=== PATIENT | male | born 1960 | race Caucasian/White ===

== ENCOUNTER 2021-12-29 08:39 | Inpatient (IN) ==
[2021-12-29] MEDS ORDERED: 0.9 % Sodium Chloride 1,000 ML IVC SCH (12:00)
[2021-12-29] MEDS ORDERED: Perflutren Lipid Microsphere 1.3 ML in 0.9 % Sodium Chloride 8.7 ML IVP PRN ×2 (12:15→12:30)
[2021-12-29] MEDS ORDERED: D5% in Water 1,000 ML IVC PRN (12:30)
[2021-12-29] MEDS ORDERED: *HR* OxyCODONE Immed Rel 5 MG TABLET PO PRN (12:30)
[2021-12-29] MEDS ORDERED: Dextrose Gel 15 GM/37.5 ML TUBE PO PRN ×2 (12:30)
[2021-12-29] MEDS ORDERED: Acetaminophen 325 MG TABLET PO PRN (12:30)
[2021-12-29] MEDS ORDERED: Ondansetron 4 MG/2 ML VIAL IVP PRN (12:30)
[2021-12-29] MEDS ORDERED: *HR* Dextrose 50 % in Water (Syg) 50 ML SYRINGE IVP PRN (12:30)
[2021-12-29] MEDS ORDERED: Naloxone 0.4 MG/ML INJ IVP PRN (12:30)
[2021-12-29] MEDS ORDERED: 0.9 % Sodium Chloride 2,000 ML ONE (12:42)
[2021-12-29] MEDS ORDERED: Heparin 1,000 UNITS/500 mL 500 ML ONE (12:42)
[2021-12-29] MEDS ORDERED: Nitroglycerin 1,000 MCG/5 ML VIAL IV ONE (12:42)
[2021-12-29] MEDS ORDERED: *HR* Heparin 10,000 UNIT/10 ML VIAL ONE (12:42)
[2021-12-29] MEDS ORDERED: Iopamidol - 370 200 ML INFUS..BTL ONE ×2 (12:42→13:55)
[2021-12-29] MEDS ORDERED: *HR* FentaNYL (PF) 100 MCG/2 ML VIAL ONE (12:56)
[2021-12-29] MEDS ORDERED: *HR* Midazolam HCl 2 MG/2 ML VIAL ONE (12:56)
[2021-12-29] MEDS ORDERED: Tirofiban 12.5 MG/250ML 12.5 MG/250 ML BAG ONE (13:37)
[2021-12-29] MEDS ORDERED: SULFUR HEXAFLUORIDE MICROSPHR 25 MG VIAL IVP ONE (14:05)
[2021-12-29] MEDS ORDERED: *HR* Ticagrelor 90 MG TABLET ONE (14:10)
[2021-12-29] MEDS ORDERED: Tirofiban 12.5 MG/250ML 12.5 MG/250 ML BAG IVC SCH (14:15)
[2021-12-29] MEDS: Insulin LISPRO 300 UNITS/3 ML VIAL SUBQ SCH (18:50)
[2021-12-29] MEDS: carvediloL 6.25 MG TABLET PO SCH (18:50)
[2021-12-29] MEDS: Nicotine 21 MG PATCH.TD24 TD SCH (18:50)
[2021-12-29] MEDS: *HR* Ticagrelor 90 MG TABLET PO SCH (20:09)
[2021-12-30] MEDS: Insulin LISPRO 300 UNITS/3 ML VIAL SUBQ SCH ×4 (01:11→17:40)
[2021-12-30 01:36] LABS: Basophils % 0.2 %; Eosinophils % 0.1 %; Hematocrit 45.7 % (37.5-50.1); Hemoglobin 14.4 g/dL (12.9-16.9); Immature Granulocytes % 0.5 % (0-4); Lymphocytes # 1.3 K/mcL (0.6-4.6); Lymphocytes % 9.9 %; Mean Corpuscular HGB Conc 31.5 g/dL (31.6-35.5); Mean Corpuscular Hemoglobin 29.6 pg (28.0-33.3); Mean Platelet Volume 10.1 fL (9.4-12.4); Monocytes # 1.2 K/mcL (0.0-1.3); Monocytes % 9.8 %; Platelet Count 199 K/mcL (140-400); Red Blood Count 4.86 M/mcL (4.19-5.50); Red Cell Distribution Width 14.4 % (11.5-14.5); Segmented Neutrophils % 79.5 %; White Blood Count 12.6 K/mcL (4.3-11.1)
[2021-12-30 01:55] LABS: BUN/Creatinine Ratio 12 (6-26); Blood Urea Nitrogen 16 mg/dL (8-23); Calcium 9.4 mg/dL (8.6-10.3); Carbon Dioxide 29 mEq/L (23-29); Chloride 105 mEq/L (98-107); Chol/HDL Ratio 4.8 (0-4.9); Cholesterol 125 mg/dL (< 200); Glucose 182 mg/dL (70-105); HDL Cholesterol 26 mg/dL (40-59); LDL Cholesterol,Calculated 59 mg/dL (< 100); Osmolality,Calculated 294 (280-300); Potassium 4.4 mEq/L (3.5-5.1); Sodium 139 mEq/L (136-145); Triglycerides 198 mg/dL (< 150); eGFR For African Americans > 60 (> 60); eGFR For Non-African Americans 54 (> 60)
[2021-12-30] MEDS ORDERED: Aspirin Enteric Coated 81 MG Tablet PO SCH (09:00)
[2021-12-30] MEDS: Aspirin 81 MG TAB.CHEW PO SCH (09:04)
[2021-12-30] MEDS: *HR* Ticagrelor 90 MG TABLET PO SCH ×2 (09:04→20:50)
[2021-12-30] MEDS: carvediloL 6.25 MG TABLET PO SCH (09:05)
[2021-12-30] MEDS: Nicotine 21 MG PATCH.TD24 TD SCH (09:05)
[2021-12-30] MEDS ORDERED: tiZANidine 4 MG TABLET PO PRN (10:28)
[2021-12-30] MEDS: Metoprolol XL (24 HR) Succ 25 MG TAB.ER.24H PO SCH (13:26)
[2021-12-30] MEDS: Gabapentin 400 MG CAPSULE PO SCH ×3 (13:27→20:52)
[2021-12-30] MEDS: Furosemide 20 MG/2 ML VIAL IVP SCH (13:27)
[2021-12-30] MEDS: Apixaban 5 MG TABLET PO SCH ×2 (15:01→20:49)
[2021-12-30] MEDS ORDERED: carvediloL 6.25 MG TABLET PO SCH (17:00)
[2021-12-31] MEDS: Insulin LISPRO 300 UNITS/3 ML VIAL SUBQ SCH ×3 (01:23→12:13)
[2021-12-31 01:38] LABS: Basophils # 0.1 K/mcL (0.0-0.2); Basophils % 0.5 %; Eosinophils # 0.1 K/mcL (0.0-0.6); Eosinophils % 0.8 %; Hematocrit 46.9 % (37.5-50.1); Hemoglobin 15.1 g/dL (12.9-16.9); Immature Granulocytes % 0.5 % (0-4); Lymphocytes # 2.3 K/mcL (0.6-4.6); Lymphocytes % 23.7 %; Mean Corpuscular HGB Conc 32.2 g/dL (31.6-35.5); Mean Corpuscular Hemoglobin 30.2 pg (28.0-33.3); Mean Corpuscular Volume 93.8 fL (83.0-100.0); Mean Platelet Volume 10.2 fL (9.4-12.4); Monocytes # 1.1 K/mcL (0.0-1.3); Monocytes % 11.3 %; Neutrophils # 6.1 K/mcL (1.6-8.9); Platelet Count 184 K/mcL (140-400); Red Cell Distribution Width 14.3 % (11.5-14.5); Segmented Neutrophils % 63.2 %; White Blood Count 9.7 K/mcL (4.3-11.1)
[2021-12-31 02:34] LABS: Calcium 10.1 mg/dL (8.6-10.3); Magnesium 1.8 mg/dL (1.6-2.6); Potassium 3.9 mEq/L (3.5-5.1)
[2021-12-31] MEDS: Metoprolol XL (24 HR) Succ 25 MG TAB.ER.24H PO SCH (07:28)
[2021-12-31] MEDS: Apixaban 5 MG TABLET PO SCH (07:28)
[2021-12-31] MEDS: Furosemide 20 MG/2 ML VIAL IVP SCH ×2 (07:29→11:36)
[2021-12-31] MEDS: *HR* Ticagrelor 90 MG TABLET PO SCH (07:29)
[2021-12-31] MEDS: Aspirin 81 MG TAB.CHEW PO SCH (07:29)
[2021-12-31] MEDS: Gabapentin 400 MG CAPSULE PO SCH ×2 (07:29→12:59)
[2021-12-31] MEDS: Nicotine 21 MG PATCH.TD24 TD SCH (07:35)
[2021-12-31] MEDS ORDERED: lisinopriL 5 MG TABLET PO SCH (09:00)
[2021-12-31 11:16] VITALS: BP 119/85; PULSE 82; TEMP 97.8; O2SAT 96
== END 2021-12-31 13:30 | disposition home or self-care (01) | DRG 246 ==
LOC: 2ANU → SUATTDRO 10:27
PROVIDERS: ADMIT Family Medicine; ATTEND Family Medicine